=== PATIENT | female | born 1990 | race African-American/Black ===

== ENCOUNTER 2016-04-28 03:39 | Emergency (ER) | payer MEDICAID, OTHER ==
[~2016-04-28] VITALS: Ht 160 cm; Wt 63.6 kg
[2016-04-28 03:48] VITALS: BP 114/69; PULSE 70; RESP 16; O2SAT 100
--- NOTE | 2016-04-28 04:07 | ED.REPORT ---
HPI-General Illness Date of Service Apr 28, 2016 ED Provider: Dr. Seymour Burt M.D. A healthy 25 year old female presents to the ED with suprapubic pain onset four days ago. Associated symptoms include lower back pain, fatigue, and "excessive" vaginal bleeding. The patient also reports a swelling bump on her right arm that she believes is a bug bite. She denies dysuria, hematuria, fever, or other symptoms. The patient was on Ortho Tri-Cyclen control until one month ago. She had irregular, mild periods while on the control. Nursing Notes Stated Complaint: LOWER ABD PAIN,BACK PAIN,EXCESSIVE BLEEDING Chief Complaint: Female Abdominal Pain Nursing Notes Reviewed: Yes Allergies: Coded Allergies: No Known Allergies (Unverified , 04/28/16) Scheduled PRN Naproxen (Naprosyn) 500 Mg Tablet 500 MG PO BID PRN PRN For Pain General Time Seen by MD: 04:06 Chief Complaint Abdominal pain, Other Hx Obtained From: Patient Arrived By: Walk-in Sudden in Onset?: No Onset Occurred: 4 days ago Symptom Duration: Since onset Location: : Abdomen (Suprapubic): Back (Lower) Quality: Painful Severity: Current: Moderate Severity: Maximum: Moderate Associated with: Denies: Fever, Vomiting Pertinent Negative: Relieved by nothing Recent Healthcare: No recent doctor visit Past Medical History Past Medical History None reported Past Surgical History None reported Smoking History Unknown if Ever Smoker Social History Other Social History: Good social support Ambulatory Status Independent Review of Systems + Swelling bump to right arm Full Review of Systems Constitutional: Reports: Fatigue, Denies: Fever Respiratory: Denies: Non-productive cough, Shortness of breath GI: Reports: Abdominal pain (Suprapubic), Denies: Diarrhea, Vomiting Female: Reports: Vaginal bleeding - abnl ("excessive"), Denies: Dysuria, Hematuria Musculoskeletal: Reports: Back pain (Lower) Complete sys rev & neg: except as marked. Physical Exam Vital Signs Vital Signs Date Time Temp Pulse Resp B/P Pulse Ox O2 Delivery O2 Flow Rate FiO2 04/28/16 06:31 36.4 78 16 105/71 98 Room Air 04/28/16 03:48 36.7 70 16 114/69 100 Room Air Initial VS: Reviewed Head / Eyes: Atraumatic, Normocephalic ENT: Conjunctiva normal, No scleral icterus Neck: Supple, Full range of motion Respiratory: Breath sounds normal, Clear to auscultation, No respiratory distress Cardiovascular: Regular rate & rhythm, Heart sounds normal Skin: Warm, Dry Neurologic: Alert, Oriented, Nonfocal Psychiatric: Mood/affect normal, Behavior normal, Normal thought content General/Constitutional: Awake, Alert, No acute distress Abdomen: Soft, BS normoactive Tenderness/Guarding/Rebound: Positive: Tender suprapubic Wrist / Hand: Full range of motion, Neurologic intact, Vascular intact Trauma / Burn / Environmental: Positive: Abrasion (Dorsal aspect of right wrist ) Interpretation & Diagnostics URINE : Negative URINE DIPSTICK: 1.015 sp gravity 5 pH Trace Protein Trace Blood Otherwise Negative Lab Results Interpretation Result Diagram: 04/28/1642404/28/16 042 Test 04/28/16 04:00 04/28/16 04:20 04/28/16 04:25 Urine Color Yellow (YELLOW) Urine Appearance Clear (CLEAR,HAZY) Urine pH 6.0 (5.0-8.0) Urine Specific [place] 1.010 (1.003-1.035) Urine Protein Negativemg/dL (NEG,TRACE) Urine Glucose (UA) Negativemg/dL (NEGATIVE) Urine Ketones Negativemg/dL (NEGATIVE) Urine Occult Blood Trace (NEGATIVE) Urine Nitrite Negative (NEGATIVE) Urine Bilirubin Negative (NEGATIVE) Urine Urobilinogen Normalmg/dL (NORMAL) Urine Leukocyte Esterase Negative (NEGATIVE) Urine RBC 0-2/hpf (0-2) Urine WBC 0-5/hpf (0-5) Urine Epithelial Cells Occasional/hpf (NONE-MOD) Urine Crystals None seen (NONE SEEN) Urine Bacteria Few/hpf (NONE-FEW) Urine Hyaline Casts None/lpf (NONE) Urine Granular Casts None seen (NONE SEEN) Urine Waxy Casts None seen (NONE SEEN) Urine Red Blood Cell Casts None seen (NONE SEEN) Urine White Blood Cell Casts None seen (NONE SEEN) Urine Mucus Present (None Seen) Urine Trichomonas None seen (NONE SEEN) Urine Yeast None (NONE SEEN) Urinalysis Comment None Urine Culture Reflexed Not indicated Hold Urine Received (Received) Hold Zafar Top Tube Received (Received) White Blood Count 3.5th/mm3 (3.8-10.1) Red Blood Count 4.09mil/mm3 (3.90-5.20) Hemoglobin 11.5g/dL (12.0-15.6) Hematocrit 36.2% (35.0-46.0) Mean Corpuscular Volume 88.5fL (81-100) Mean Corpuscular Hemoglobin 28.1pg (27.0-35.0) Mean Corpuscular Hemoglobin Concent 31.8% (32.0-37.0) Red Cell Distribution Width 13.4% (12.3-15.4) Platelet Count 262bil/L (150-400) Neutrophils (%) (Auto) 54.9% (40-74) Lymphocytes (%) (Auto) 28.9% (14-46) Monocytes (%) (Auto) 8.5% (4-12) Eosinophils (%) (Auto) 7.4% (0-5) Basophils (%) (Auto) 0.3% (0-3) Prothrombin Time 10.9sec (8.1-12.5) Prothromb Time International Ratio 1.02ratio Sodium Level 137mEq/L (134-144) Potassium Level 4.8mEq/L (3.5-5.2) Chloride Level 103mEq/L (97-108) Carbon Dioxide Level 26mmol/L (18-29) Blood Urea Nitrogen 7mg/dL (6-20) Creatinine 0.64mg/dL (0.57-1.00) Estimat Glomerular Filtration Rate 144mL/min (>59) Glucose Level 89mg/dL (60-99) Calcium Level 8.1mg/dL (8.5-10.1) Magnesium Level 1.9mg/dL (1.6-2.6) Total Bilirubin 0.3mg/dL (0.0-1.2) Aspartate Amino Transf (AST/SGOT) 22U/L (0-50) Alanine Aminotransferase (ALT/SGPT) 5U/L (0-32) Alkaline Phosphatase 42U/L (25-150) Total Protein 6.7g/dL (6.4-8.4) Albumin 3.6g/dL (3.4-5.0) Lipase 28U/L (13-60) Thyroid Stimulating Hormone (TSH) 0.450uIU/mL (0.450-4.500) Free Thyroxine 0.85ng/dL (0.82-1.77) Re-Eval/Medical Decision Med Decision/Clinical Course 25-year-old comes in with a heavy period after being on Ortho-Cyclen for many years. She has apparent withdrawal bleeding and dysfunctional uterine bleeding with some pelvic pain. No indication of infection and no indication for imaging. Follow-up with PCP. Naprosyn for pain and bleeding control. Time of Eval: 06:07 Patient Status: Condition improved Re-Evaluation/Progress Note: Discussed with patient lab results, diagnosis, and plan for discharge. Follow-up and return to the ER instructions given. Patient agrees with plan for care and all questions were addressed. Counseled Regarding: Diagnosis, Lab results, Need for follow-up, When/why to return to ED Discharge & Departure Shift Change Sign-Out Response to Therapy: Improved Primary Impression: Dysfunctional uterine bleeding Additional Impression: Dysmenorrhea Disposition: Home Discharge Condition All VS Reviewed: Yes Condition: Improved Patient Instructions: Dysfunctional Uterine Bleeding (ED) Additional Instructions: Naprosyn twice daily for cramps and for bleeding. Follow-up with local physician. Return if any immediate issues. Urgent visit is also available for nonemergent care during the day and evening. Referrals: NOPCP (PCP) [facility] Attestation Portions of this note were transcribed by Brenna Thorpe. I, Dr. Burt, personally performed the history, physical exam, and medical decision-making; I reviewed and confirmed the accuracy of the information in the transcribed note. Signed by: Augustine Da Silva, 04/28/2016, 06:13 Seymour Burt MD Apr 28, 2016 04:06 BRENNA THORPE Apr 28, 2016 04:28
[2016-04-28 04:33] LABS: BASOPHILS % (AUTO) 0.3 % (0-3); EOSINOPHILS % (AUTO) 7.4 % (0-5); MONOCYTES % (AUTO) 8.5 % (4-12); Mean Corpuscular Hemoglobin 28.1 pg (27.0-35.0); Mean Corpuscular Volume 88.5 fL (81-100); NEUTROPHILS % (AUTO) 54.9 % (40-74); Platelet Count 262 bil/L (150-400)
[2016-04-28 04:48] LABS: INR 1.02 ratio
[2016-04-28 05:05] LABS: Magnesium 1.9 mg/dL (1.6-2.6)
[2016-04-28] MEDS ORDERED: 0.9% Sodium Chloride 1,000 ML IV ONE (05:30)
[2016-04-28 05:53] LABS: APPEARANCE,URINE CLEAR (CLEAR,HAZY); COLOR,URINE YELLOW (YELLOW); OCCULT BLOOD,URINE TRACE (NEGATIVE); UROBILINOGEN,URINE NORMAL (NORMAL)
[2016-04-28] MEDS ORDERED: NAPR500T PO (06:12)
[2016-04-28 06:31] VITALS: BP 105/71; PULSE 78; RESP 16; O2SAT 98
== END 2016-04-28 06:21 | disposition home or self-care (01) ==
LOC: SED 03:53
DX: N93.9 Abnormal uterine and vaginal bleeding, unspecified (principal); N94.6 Dysmenorrhea, unspecified; M79.89 Other specified soft tissue disorders; Z92.0 Personal history of contraception
CPT/HCPCS: 36415; 80053; 81000; 83690; 83735; 84439; 84443; 85025; 85610; 96361; 96374; 99284; J7030